=== PATIENT | female | born 1985 | race Caucasian/White ===

== ENCOUNTER 2020-03-08 14:11 | Inpatient (IN) | payer MEDICAID ==
[~2020-03-08] VITALS: Ht 175.3 cm; Wt 64.4 kg
[2020-03-08] VITALS (8 sets, daily range): BP systolic 95–104; BP diastolic 39–52
--- NOTE | 2020-03-08 14:59 | NUR ---
PICC NURSE AT BEDSIDE.
[2020-03-08] MEDS ORDERED: IV NS 0.9% 1,000 ML BAG IV ONE ×2 (15:00→16:00)
[2020-03-08] MEDS ORDERED: ACETAMINOPHEN ES 500 MG TABLET PO ONE (15:00)
[2020-03-08] MEDS ORDERED: ACETAMINOPHEN ES 500 MG TABLET ONE (15:01)
[2020-03-08 15:43] LABS: BASOPHILS # (AUTO) 0.1 /CMM (0.0-0.2); BASOPHILS % (AUTO) 0.3 % (0.0-2.0); HEMATOCRIT 30 % (33-45); HEMOGLOBIN 9.8 g/dL (11.5-14.8); LYMPHOCYTES # (AUTO) 0.5 /CMM (0.8-4.8); LYMPHOCYTES % (AUTO) 1.7 % (20.0-44.0); MEAN CORPUSCULAR HGB CONC 32 g/dl (31.0-36.0); MEAN CORPUSCULAR VOLUME 79 fL (82-100); MONOCYTES # (AUTO) 1.6 /CMM (0.1-1.30); NEUTROPHILS # (AUTO) 24.8 /CMM (1.8-8.9); PLATELET COUNT (AUTO) 301 /CMM (150-450); RED BLOOD CELL COUNT(AUTO) 3.83 MIL/uL (4.0-5.2)
--- NOTE | 2020-03-08 15:44 | NUR ---
ARNAUD FROM HOME TO ER BED 6. AAOX4. TACHYPNEIC W/ RAPID SHALLOW BREATHING. SATTING 98% ON RA. LETHARGIC, RESPONSIVE TO VERBAL AND TACTULE STIMULI. BROUGHT IN FOR FEVER AND TACHYCARDIA. PER EMS REPORT, PT HAS BEEN PROGRESSIVELY GETTING SICK IN THE PAST 3 DAYS. PT WAS REPORTED TO SHOOT UP HEROIN WHEN IT STARTED. PT IS NOTED WEAK, TACHYCARDIC IN THE 130S. PLACED ON O2 VIA NC @ 2LPM. PLACED ON MONITOR. MD WAS AT BEDSIDE FOR EVAL. PICC LINE NURSE INSERTED A CHARLEEN MIDLINE 18G. BLOOD DRAWN AND GIVEN TO CAGE MAKER. URINE COLLECTED VIA STRAIGHT CATH W/ STRICT STERILE TECHNIQUE. WILL CNTINUE TO MONITOR PT
[2020-03-08 15:48] LABS: APPEARANCE,URINE Clear (CLEAR); BILIRUBIN,URINE Negative (NEGATIVE); BLOOD, URINE Moderate Ery/uL (NEGATIVE); COLOR,URINE Yellow (YELLOW); KETONES,URINE Negative (NEGATIVE); LEUKOCYTE ESTERASE ,URINE Trace (NEGATIVE); NITRITE, URINE Negative (NEGATIVE); PROTEIN,URINE >=300 mg/dl (NEGATIVE); UGLUCOSE Negative (NEGATIVE); UROBILINOGEN,URINE 0.2 EU/dL (0.2)
[2020-03-08 15:52] LABS: BACTERIA,URINE Few /HPF (None Seen); SQUAMOUS EPITHELIAL CELL,UR Few /HPF (None Seen)
[2020-03-08] MEDS ORDERED: MEROPENEM 500 MG in IV NS 0.9% 50 ML IV ONE (16:00)
[2020-03-08] MEDS ORDERED: AZITHROMYCIN 500 MG in IV D5W 250 ML IV ONE (16:00)
--- NOTE | 2020-03-08 16:04 | NUR ---
PT TO RADILOGY ON RUBY
[2020-03-08 16:08] LABS: CALCIUM, SERUM 8.8 mg/dL (8.5-10.1); CARBON DIOXIDE 24 mmol/L (21-32); CHLORIDE 94 mmol/L (98-107); CREATININE 1.4 mg/dL (0.6-1.3); GLUCOSE 131 mg/dL (74-106); POTASSIUM 3.7 mmol/L (3.5-5.1); SODIUM SERUM 129 mmol/L (136-145); UREA NITROGEN, BLOOD 21 mg/dL (7-18)
[2020-03-08 16:12] LABS: ACETAMINOPHEN < 2 ug/ml (10-30); ALANINE AMINOTRANSFERASE 154 U/L (12-78); ALBUMIN 2.3 g/dL (3.4-5.0); ALCOHOL, BLOOD < 3 mg/dL (0-0); ALKALINE PHOSPHATASE 139 U/L (46-116); ASPARTATE AMINOTRANSFERASE 215 U/L (15-37); BILIRUBIN,DIRECT 0.2 mg/dL (0.0-0.2); BILIRUBIN,TOTAL 0.5 mg/dL (0.2-1.0); SALICYLATE 1.1 mg/dL (2.8-20.0); TOTAL PROTEIN, SERUM 7.7 g/dL (6.4-8.2)
[2020-03-08 16:15] LABS: SERUM AMMONIA < 10 umol/L (11-32)
--- NOTE | 2020-03-08 16:17 | NUR ---
CARDIOLOGY PAGED ITS GONZALES
[2020-03-08 16:22] LABS: THYROID STIMULATING HORMONE 0.166 uIU/mL (0.358-3.74)
--- NOTE | 2020-03-08 16:29 | NUR ---
COVID AND INLUENZA SWAB DONE
--- NOTE | 2020-03-08 16:40 | NUR ---
RECTAL TEMP 101.5. AWARE
[2020-03-08 16:51] LABS: ABG BASE EXCESS -2.1 mmol/L; ABG OXYGEN SATURATION 98.7 % (92.0-98.5); ABG PCO2 28.9 mmHg (35.0-45.0); ABG PH 7.475 (7.350-7.450); ABG PO2 177.5 mmHg (75.0-100.0); AaDO2 45.7 mmHg; COHb 0.3 % (0.5-1.5); MetHb 0.7 % (0.0-1.5); O2Hb 97.7 % (94.0-97.0); SITE, ABG Right Radial; VENT MODE, BG NC 4LPM
--- NOTE | 2020-03-08 17:29 | NUR ---
MD AWARE OF BP 96/64 HR 120. NNO RECEOVED AT THIS TIME.
--- NOTE | 2020-03-08 18:59 | NUR ---
PT'S BOYFRIEND NOTIFIED THAT PT IS BEING ADMITTED TO THE HOSPITAL AND UPDATED ABOUT HER CONDITION.
--- NOTE | 2020-03-08 19:10 | NUR ---
LACTIC ACID 2.1 DR. LOBO AWARE.
[2020-03-08] MEDS ORDERED: MAG HYDROX/AL HYDROX/SIMETH 30 ML UDC PO PRN (20:00)
[2020-03-08] MEDS ORDERED: Z GUARD REMEDY 2 OZ OINT TP PRN (20:00)
[2020-03-08] MEDS ORDERED: ACETAMINOPHEN 325 MG TABLET PO PRN (20:00)
[2020-03-08] MEDS ORDERED: ONDANSETRON HCL/PF 4 MG/2 ML VIAL IVP PRN (20:00)
[2020-03-08] MEDS ORDERED: MAGNESIUM HYDROXIDE 30 ML UDC PO PRN (20:00)
--- NOTE | 2020-03-08 20:17 | NUR ---
HR NOTED @ 135. MADE AWARE, NNO RECEIVED.
--- NOTE | 2020-03-08 20:35 | NUR ---
BED 258
--- NOTE | 2020-03-08 20:54 | NUR ---
REPORT GIVEN TO AMELIA SALDANA FOR JAMES.
[2020-03-08] MEDS ORDERED: FEE PK DOSING 1 MIN EA MC ONE (20:55)
--- NOTE | 2020-03-08 21:30 | NUR ---
GROUP WORK PROGRAM AIDE NOTE PATIENT ARRIVED TO UNIT AT THIS TIME VIA RMARY. PATIENT APPEARS LETHARGIC, CONFUSED. ABLE TO MAKE NEEDS KNOWN, VERBALLY RESPONSIVE IN FRENCH. REACTIVE TO LOCALIZED PAIN. PATIENT COMPLAINED OF GENERALIZED PAIN WHEN MOVING PATIENT IN BED. PAIN RELIVED BY IMMOBILIZING EXTREMITIES. ON O2 2 L VIA NC. PATIENT NOTED WITH TACHYCARDIA AND TACHYPNEA. NOTED GENERALIZED MULTIPLE ROUND SCABS ON UPPER, LOWER EXTREMITIES, AND FACE. IV SITE ON CHARLEEN, MIDLINE, CLEAN AND PATENT. PATIENT IS INCONTINENT. PATIENT HAD BM UPON ADMISSION. STOOL IS SOFT, BROWN, PASTY IN APPEARANCE. PATIENT HAS FEVER OF 103.4 F AT THIS TIME. BED IS LOWERED TO LOW POSITION AND LOCKED FOR SAFETY. WILL CONTINUE TO MONITOR.
--- NOTE | 2020-03-08 21:32 | NUR ---
PT TRANSPORTED TO UNIT ON GURNEY WITH EMT AND RN AT BEDSIDE W/ ACLS PROTOCOL. NAD NOTED DURING TRANSPORT.
[2020-03-08] MEDS: IV NS 0.9% 1,000 ML IV SCH (21:41)
[2020-03-08] MEDS: VANCOMYCIN 1.25 GM in IV D5W 250 ML IV SCH (21:41)
[2020-03-08] MEDS: PIPERACILLIN /TAZOBACTAM 3.375 G in IV D5W 50 ML IV SCH (23:24)
[2020-03-09] VITALS (38 sets, daily range): BP systolic 67–121; BP diastolic 26–88
[2020-03-09] MEDS ORDERED: NOREPINEPHRINE 4 MG/4 ML AMPUL IV ONE (03:22)
[2020-03-09] MEDS ORDERED: NOREPINEPHRINE 8 MG in IV NS 0.9% 242 ML IV PRN ×4 (03:30)
--- NOTE | 2020-03-09 03:30 | NUR ---
WOUND CARE COORDINATOR NOTE PATIENT NOTED WITH LOW BP. BP WAS 81/64. OPERATIONS INSPECTOR TERRANCE FERNANDEZ MADE AWARE. RECEIVED ORDERS FOR LEVOPHED DRIP TO TITRATE. ORDERS NOTED AND CARRIED OUT. WILL CONTINUE TO MONITOR.
[2020-03-09 04:28] LABS: BASOPHILS % (AUTO) 0.1 % (0.0-2.0); HEMATOCRIT 27 % (33-45); HEMOGLOBIN 8.8 g/dL (11.5-14.8); LYMPHOCYTES # (AUTO) 0.8 /CMM (0.8-4.8); LYMPHOCYTES % (AUTO) 2.9 % (20.0-44.0); MEAN CORPUSCULAR HGB CONC 33 g/dl (31.0-36.0); MEAN CORPUSCULAR VOLUME 79 fL (82-100); MONOCYTES # (AUTO) 2.1 /CMM (0.1-1.30); MONOCYTES % (AUTO) 7.4 % (2.0-12.0); NEUTROPHILS # (AUTO) 25.4 /CMM (1.8-8.9); NEUTROPHILS % (AUTO) 89.6 % (43.0-81.0); PLATELET COUNT (AUTO) 229 /CMM (150-450); RED BLOOD CELL COUNT(AUTO) 3.41 MIL/uL (4.0-5.2); WHITE BLOOD COUNT (AUTO) 28.4 K/uL (4.3-11.0)
[2020-03-09 04:41] LABS: CALCIUM, SERUM 7.8 mg/dL (8.5-10.1); CREATININE 1.3 mg/dL (0.6-1.3); PHOSPHORUS 3.1 mg/dL (2.5-4.9); POTASSIUM 3.2 mmol/L (3.5-5.1)
[2020-03-09] MEDS: PIPERACILLIN /TAZOBACTAM 3.375 G in IV D5W 50 ML IV SCH ×3 (05:14→18:05)
[2020-03-09] MEDS: IV NS 0.9% 1,000 ML IV SCH ×2 (05:14→15:18)
--- NOTE | 2020-03-09 07:17 | NUR ---
MINE CAR REPAIRER NOTE PATIENT IS IN BED RESTING WITH HOB ELEVATED. BREATHING IS EVEN AND NON LABORED. ON COOLING MEASURES FOR FEVER. ALL DUE MEDS GIVEN AND TOLERATED WELL. PATIENT KEPT CLEAN, DRY, AND COMFORTABLE. WILL ENDORSE TO AM SHIFT RN FOR CONTINUATION OF CARE.
--- NOTE | 2020-03-09 07:38 | NUR ---
WOUND CARE CONSULT: REVIEWED CHART, PHOTO DOCUMENTATION AND NURSING DOCUMENTATION. PER PHOTOS, PT HAS MULTIPLE DRY SCABS AND SCARS, PRESENT ON ADMISSION. RECOMMENDATIONS MADE FOR SKIN PROTECTION. DISCUSSED WITH NURSING STAFF. CURRENT JANES SCORE IS 16. MD IN AGREEMENT WITH PLAN OF CARE. WILL SEE PRN.
[2020-03-09] MEDS ORDERED: IV D5/ 0.9% NACL 1,000 ML IV PRN (08:39)
[2020-03-09] MEDS ORDERED: ENOXAPARIN SODIUM 40 MG/0.4 ML DISP.SYRIN SQ SCH (09:00)
[2020-03-09] MEDS ORDERED: ASPIRIN 81 MG TAB.CHEW PO SCH (09:00)
[2020-03-09] MEDS: POTASSIUM CHLORIDE 20 MEQ TAB.PRT.SR PO SCH ×3 (09:20→11:35)
[2020-03-09] MEDS: VANCOMYCIN 1.25 GM in IV D5W 250 ML IV SCH (10:16)
--- NOTE | 2020-03-09 10:53 | NUR ---
SURFACE PLATE INSPECTOR NOTES CONTACTED DR GARCIA ABOUT TROPONIN 36.[address] DENNIS.
--- NOTE | 2020-03-09 11:34 | NUR ---
BABY ATTENDANT NOTES PER DR GARCIA IT IS OK TO CONTINUE TYLENOL 650MG PO Q6HR PRN FOR FEVER.
[2020-03-09] MEDS: ACETAMINOPHEN 325 MG TABLET PO PRN ×2 (11:38→18:06)
--- NOTE | 2020-03-09 13:14 | NUR ---
SLACKMAN NOTES PT TEMPERATURE IS 101.2
--- NOTE | 2020-03-09 15:12 | NUR ---
Social service consult requested by MD for Heroin use. Per chart review and MD notes, pt is a 34-year-old female who stated she has been "sick" for the last 3 days. Patient is a very poor historian and is difficult to get a history from her per MD. Patient does admit to using IV heroin and states her last use was 3 days ago. Patient states she just feels very fatigued. Patient had a fever noted on arrival. Patient denied cough or congestion. Pt was admitted for sepsis. Pt was tested for COVID-19 on 03/09/20 and was negative. MINE EQUIPMENT DESIGN ENGINEER consulted with ICU MARCELA Christopher regarding pt's condition. MINE EQUIPMENT DESIGN ENGINEER conducted assessment via phone since pt is in ICU. MINE EQUIPMENT DESIGN ENGINEER introduced self, explained the role of the SW and purpose of the call. Pt is alert and oriented x 3. Pt appears to be breathing heavily but is able to participate in the assessment. Pt reports she lives with her boyfriend Jeancarlos in [place]. Pt states, her boyfriend is very supportive and helps her out a lot. Pt states, " he is my everything." Pt reports she has no family support. Prior to the pandemic, pt was working at a [employer]. Pt lost her job in December and was then evicted from her apartment. Pt was homeless for a while and now resides with her boyfriend. Pt reports, she has a one year old son named Carlos who lives full-time with the father. Pt became tearful stating, " I miss him so much and the father is doing everything he can to keep me away." Pt has no contact with her son. MINE EQUIPMENT DESIGN ENGINEER provided active listening and emotional support to the pt and provided positive coping skills. Prior to hospitalization, pt reports to be ambulatory and independent with her ADLS. Pt receives food stamps. Pt has a history of heroin abuse and last used 3 days ago. Pt's UA is positive for Opiates, benzodiazepines and cocaine. Pt is unclear if she has been to treatment programs in the past. Pt is interested in attending a detox program and wanting to get on Vivitrol. MINE EQUIPMENT DESIGN ENGINEER informed pt, once medically cleared a family welfare social work professor will refer her to [facility] for detox. If pt is not accepted at [facility] due to a waitlist, pt will be provided with a list of substance abuse resources. Pt denies any psychiatric history. Pt denies suicidal ideations and homicidal ideations at this time. Warm handoff provided to family welfare social work professor who will follow up with the pt.
[2020-03-09] MEDS ORDERED: AZITHROMYCIN 500 MG in IV D5W 250 ML IV SCH (16:00)
--- NOTE | 2020-03-09 18:40 | NUR ---
PURCHASING BUYER NOTES PATIENT TEMPERATURE INCREASED TO 104.0 F COOL BLANKED PLACES AND TYLENOL ADMINISTRATED. WILL FOLLOW UP WITH PT CONDITION.
--- NOTE | 2020-03-09 18:58 | NUR ---
CAVING GUIDE NOTES PATIENT DID NOT WANT TO BE TURNED DUE TO BODY ACHE HOWEVER, WE WERE ABLE TO TURN HER DURING BED BATH AND DIAPER CHANGE.
[2020-03-09] MEDS ORDERED: EPINEPHRINE (1:10,000) SYRINGE 1 MG/10 ML DISP.SYRIN IVP ONE (21:07)
[2020-03-09] MEDS ORDERED: SODIUM BICARBONATE SYR 50 MEQ/50 ML DISP.SYRIN IV ONE (21:07)
--- NOTE | 2020-03-09 22:00 | NUR ---
1999 assessment pt awake, following commands.IV running along with levophed. On cooling blanket for fever. 2054 Pt non responsive, code called pt in [facility], code run till 2107. Called by Dr. Kapoor. see code sheet for details
--- NOTE | 2020-03-10 03:35 | NUR ---
Jeancarlos Andino was called a total of 3 times to inform him to call the hospital. Jeancarlos Andino called back at [phone] and was informed that Erika Soumya had . All questions answered, regarding . Mr. Andino informed RElpidio. he will be in 03/10/2020 to come fill out any paper work needed. He is our only contact. Chelsey was informed that he would call the patients mother. No phone number was offered for R.Brianne to call patient mother. Informed belongings he brought were with the patient. Also informed that her cell phone 2 charges and $220 (2 100 dollar bills and 1 20 dollar bill was in the safe in ICU). He was aware of the money and belongings stating he had brought them on 03/09/2020. Chelsey offered sincere condolences, to Mr. Andino.
== END 2020-03-09 21:08 | disposition expired | DRG 816 ==
LOC: ER 14:15 → ICU 20:48
PROVIDERS: ADMIT Internal Medicine; ATTEND Internal Medicine
DX: T40.5X1A Poisoning by cocaine, accidental (unintentional), initial encounter (principal); I21.4 Non-ST elevation (NSTEMI) myocardial infarction; N17.0 Acute kidney failure with tubular necrosis; K72.00 Acute and subacute hepatic failure without coma; A41.9 Sepsis, unspecified organism; E43 Unspecified severe protein-calorie malnutrition; R65.21 Severe sepsis with septic shock; G92 Toxic encephalopathy; E86.1 Hypovolemia; D50.9 Iron deficiency anemia, unspecified; F11.10 Opioid abuse, uncomplicated; E87.2 Acidosis; E87.1 Hypo-osmolality and hyponatremia; E05.90 Thyrotoxicosis, unspecified without thyrotoxic crisis or storm; R74.0 Nonspecific elevation of levels of transaminase and lactic acid dehydrogenase [LDH]; E87.6 Hypokalemia; I38 Endocarditis, valve unspecified; Y92.009 Unspecified place in unspecified non-institutional (private) residence as the place of occurrence of the external cause; Z68.21 Body mass index [BMI] 21.0-21.9, adult; F14.188 Cocaine abuse with other cocaine-induced disorder
CPT/HCPCS: 36410; 36415; 36569; 36600; 70450-TC; 71045-TC; 80048-TC; 80061-TC; 80076-TC; 80305; 81000-TC; 82140-TC; 82533; 82728-TC; 82803-TC; 82962-TC; 83540-TC; 83605-TC; 83735-TC; 84100-TC; 84439-TC; 84443-TC; 84484-TC; 84703-TC; 85025-TC; 85378-TC; 85730-TC; 87040-TC; 87081-TC; 87086-TC; A4216; G0378; G0480; J0171; J0456; J1650; J2185; J2543; J3370; J3490; J7030; J7050; J7060